=== PATIENT | female | born 1985 | race Caucasian/White ===

== ENCOUNTER 2018-04-09 18:33 | Emergency (ER) | payer BC ==
[2018-04-09 18:48] LABS: Bilirubin Negative (Negative); Blood, Urine Large (Negative); Clarity Clear (Clear); Glucose, Urine (Dipstick) Negative (Negative); Leukocyte Large (Negative); Nitrite Negative (Negative); Protein, Urine (Dipstick) Negative (Neg-Trace); Urobilinogen 0.2 mg/dL (0.2-1.0)
[2018-04-09 18:49] LABS: Specific Gravity, Urine 1.001 (1.002-1.036)
[2018-04-09 18:51] LABS: Bacteria/HPF 1+ HPF (None Seen); Squamous Epithelial 0-3 HPF (0-3)
== END 2018-04-09 19:37 | disposition home or self-care (01) ==
LOC: SCSER 18:33
DX: N39.0 Urinary tract infection, site not specified (principal)
CPT/HCPCS: 81003; 81015; 99283

== ENCOUNTER 2020-03-23 16:24 | Emergency (ER) | payer BC ==
--- NOTE | 2020-03-23 18:00 | ULT ---
OB ULTRASOUND: 03/23/20 HISTORY: Started bleeding at 3 p.m. today. Real time imaging of the pelvis shows a viable intrauterine . The heart rate is 171 be ats per minute. The [id number] length is 1.6 cm corresponding to 8 weeks, 0 days. Gestational sac measurements of 3 cm corresponding to 8 weeks, 1 day. There is a subchorionic bleed present with a fairly large hypoechoic area adjacent to the gestational sac. The gestational sac is in normal position. The right and left adnexal regions appear unremarkable. DOPPLER EVALUATION WITH SPECTRAL ANALYSIS: Normal flow is shown to the adnexa. IMPRESSION: 1. Viable intrauterine with measurements corresponding to a gestational age of 8 weeks , 1 day estimated date of delivery, 11/01/20. 2. Subchorionic bleed. POS: ANDRE
[2020-03-23 18:17] LABS: Bilirubin Negative (Negative); Blood, Urine Trace (Negative); Clarity Clear (Clear); Glucose, Urine (Dipstick) Normal (Negative); Leukocyte Negative Leu/uL (Negative); Mucous/LPF 1+ LPF (<2+); Nitrite Negative (Negative); Protein, Urine (Dipstick) Negative (Neg-Trace); RBC/HPF 0-3 HPF (0-3); Squamous Epithelial 0-3 HPF (0-3); Urobilinogen Normal mg/dL (Less than 2); WBC/HPF 0-3 HPF (0-3)
[2020-03-23 18:18] LABS: Bacteria/HPF Rare-Few HPF (None Seen); Pregnancy Test - Urine (BHCG) POSITIVE (Negative); Pregu Control Background? CLEAR/WHITE (CLR/WHITE); Pregu Control Bar Appear? YES (CONTROL BAR); Specific Gravity 1.016 (1.002-1.036)
== END 2020-03-23 17:40 | disposition home or self-care (01) ==
LOC: ERS 16:24
DX: O20.9 Hemorrhage in early pregnancy, unspecified (principal); Z3A.01 Less than 8 weeks gestation of pregnancy
CPT/HCPCS: 36415; 76856; 81003; 81015; 81025; 84702; 86900; 86901